=== PATIENT | female | born 1985 | race Asian ===

== ENCOUNTER 2018-09-09 18:07 | Emergency (ER) | payer OTHER ==
[~2018-09-09] VITALS: Ht 152.4 cm; Wt 58.1 kg
[2018-09-09 18:13] VITALS: Ht 152.4 cm; Wt 58.1 kg
[2018-09-09 18:55] LABS: CALCIUM 8.7 mg/dL (8.5-10.1); CARBON DIOXIDE 25.7 mmol/L (21-32); CHLORIDE SERUM 105 mmol/L (98-107); CREATININE SERUM 0.6 mg/dL (0.6-1.0); GFR1 > 60 mL/min; GLUCOSE SERUM 115 mg/dL (74-106); POTASSIUM SERUM 3.8 mmol/L (3.5-5.1); SODIUM SERUM 138 mmol/L (136-145)
[2018-09-09 18:59] LABS: BASOPHIL % 0.2 % (0-2); PLATELET COUNT 364 x10^3mcL (130-400)
[2018-09-09 19:00] LABS: ALBUMIN 3.7 g/dL (3.4-5.0); ALKALINE PHOSPHATASE 44 U/L (46-116); ALT/SGPT 16 U/L (14-59); AST/SGOT 13 U/L (15-37); BILIRUBIN TOTAL 0.2 mg/dL (0.20-1.00)
[2018-09-09 19:01] LABS: RED CELL DISTRIBUTION WIDTH 19.9 % (11.5-14.5)
[2018-09-09 19:12] LABS: ovalocyte/elliptocyte 1+
[2018-09-09 19:13] LABS: rbc morphology (normal/abnorm) ABNORMAL (NORMAL)
[2018-09-09 19:59] VITALS: BP 125/76
== END 2018-09-09 19:59 | disposition home or self-care (01) ==
LOC: ED 18:07
PROVIDERS: Emergency Medicine
DX: R53.1 Weakness (principal); D64.9 Anemia, unspecified; Z87.42 Personal history of other diseases of the female genital tract; D25.9 Leiomyoma of uterus, unspecified; K59.00 Constipation, unspecified
CPT/HCPCS: J7030